=== PATIENT | male | born 1970 | race Caucasian/White ===

== ENCOUNTER → 2024-10-26 | Outpatient (CLI) | payer BC ==
--- NOTE | 2024-10-26 11:07 | US ---
EXAMINATION TYPE: US venous doppler duplex LE RT DATE OF EXAM: 10/26/2024 10:43 AM COMPARISON: NONE CLINICAL INDICATION: Male, 54 years old with history of I80.9 PHLEBITIS AND THROMBOPHLEBITIS; Partial right knee replacement; Swelling and pain; Hx RLE DVT 5 years ago; Patient is not on thinners but is taking OTC Asprin, Pain TECHNIQUE: The lower extremity deep venous system is examined utilizing real time linear array sonog nj with graded compression, color doppler sonography, and spectral doppler. SIDE PERFORMED: Right FINDINGS: VESSELS IMAGED: Common Femoral Vein Deep Femoral Vein Greater Saphenous Vein * Femoral Vein Popliteal Vein Small Saphenous Vein * Proximal Calf Veins Posterior tibial veins (* superficial vessels) Right Leg: Negative for DVT, Color Doppler imaging shows patency of the vessels. Spectral waveforms are within normal limits. IMPRESSION: No evidence for DVT within the right lower extremity. [facility], , 10/26/2024 11:05 AM
== END | disposition home or self-care (01) ==
LOC: RADUSWWP 10:31
PROVIDERS: ATTEND Orthopaedic Surgery
DX: I80.9 Phlebitis and thrombophlebitis of unspecified site (principal)